=== PATIENT | male | born 1955 | race Caucasian/White ===

== ENCOUNTER → 2017-03-05 | Outpatient (CLI) | payer OTHER ==
[~2017-03-05] MED LIST: GADOBUTROL 10 ML VIAL IVP ONE
== END ==
LOC: FIMAGING 15:05
PROVIDERS: ATTEND Radiology Diagnostic Radiology
DX: E27.9 Disorder of adrenal gland, unspecified (principal)
CPT/HCPCS: A9585

== ENCOUNTER 2017-03-22 06:55 | Day surgery (SDC) | payer OTHER ==
[2017-03-22] MEDS ORDERED: NS 1,000 ML IV SCH (07:45)
[2017-03-22] MEDS ORDERED: MIDAZOLAM 2 MG/2 ML VIAL ONE (08:20)
[2017-03-22] MEDS ORDERED: NALOXONE HCL 0.4 MG/ML INJ ONE (08:20)
[2017-03-22] MEDS ORDERED: FLUMAZENIL 0.5 MG/5 ML MDV IVP ONE (08:20)
[2017-03-22] MEDS ORDERED: fentaNYL 100 MCG/2 ML INJ ONE (08:20)
[2017-03-22] MEDS ORDERED: ONDANSETRON 4 MG/2 ML VIAL ONE (08:37)
[2017-03-22] MEDS ORDERED: PHENTOLAMINE MESYLATE 5 MG/ML VIAL ID PRN (09:08)
[2017-03-22 11:42] VITALS: TEMP 97.7
== END 2017-03-22 12:15 | disposition home or self-care (01) ==
LOC: FIMAGING 06:55
PROVIDERS: ATTEND Radiology Diagnostic Radiology
PROC: 0GB23ZX Excision of Left Adrenal Gland, Percutaneous Approach, Diagnostic (ICD-10-PCS; principal; 2017-03-22 10:10)
DX: D35.02 Benign neoplasm of left adrenal gland (principal)
CPT/HCPCS: J2250; J2310; J2405; J2760; J3010

== ENCOUNTER → 2017-10-18 | Outpatient (CLI) | payer OTHER | LOC: FIMAGING 13:02 | PROVIDERS: ATTEND Internal Medicine | DX: Z09 Encounter for follow-up examination after completed treatment for conditions other than malignant neoplasm (principal); E27.9 Disorder of adrenal gland, unspecified ==

== ENCOUNTER → 2018-11-14 | Outpatient (CLI) | payer OTHER | LOC: FIMAGING 08:28 | PROVIDERS: ATTEND Internal Medicine | DX: E27.9 Disorder of adrenal gland, unspecified (principal); N40.0 Benign prostatic hyperplasia without lower urinary tract symptoms; N32.0 Bladder-neck obstruction; K80.20 Calculus of gallbladder without cholecystitis without obstruction ==

== ENCOUNTER 2019-01-13 18:26 | Observation (INO) | payer OTHER | END 2019-01-14 11:42 | disposition home or self-care (01) | LOC: F3N 01-14 01:03 ==